=== PATIENT | male | born 1965 | race Two or more races ===

== ENCOUNTER 2019-09-19 14:42 | Inpatient (IN) | payer MEDICAID, OTHER ==
[~2019-09-19] VITALS: Ht 185.4 cm; Wt 110.3 kg
[2019-09-19 15:23] LABS: Basophils # (auto) 0 uL; Basophils % (auto) 0.2 % (0.0-2.0); Eosinophils # (auto) 0.1 uL; Monocytes # (auto) 0.8 uL; Nucleated Red Blood Cells % 0.1 %
[2019-09-19 15:25] LABS: Eosinophils % (auto) 0.5 % (0.0-7.0); Hematocrit 51.6 % (41.0-53.0); Hemoglobin 17.8 g/dL (13.5-17.5); Lymphocytes # (auto) 1.8 uL; Lymphocytes % (auto) 14.2 % (10.0-50.0); Mean Corpuscular Hgb Conc. 34.6 g/dL (32.0-36.0); Mean Corpuscular Volume 83.7 fL (80.0-100.0); Monocytes % (auto) 6.4 % (0.0-12.0); Neutrophils # (auto) 9.8 uL; Neutrophils % (auto) 78.7 % (37.0-80.0); Platelet Count (auto) 267 10^3/uL (140-450); Red Blood Cells 6.16 10^6/uL (4.5-5.90); Red Cell Distribution Width 13.7 % (11.8-14.3); White Blood Cell 12.4 10^3/uL (4.4-10.8)
[2019-09-19] MEDS ORDERED: DILTIAZEM HCL 25 MG/5 ML VIAL IV ONE (15:30)
[2019-09-19 15:37] LABS: INR 1.05 (0.9-1.15); Partial Thromboplastin Time 25.3 sec (23.64-32.05)
[2019-09-19 15:40] LABS: Albumin 3.5 g/dL (3.4-5.0); BUN/Creatinine Ratio 16.5; Calcium 8.7 mg/dL (8.5-10.1); Potassium 4.4 mmol/L (3.5-5.1)
[2019-09-19 15:45] LABS: Bilirubin, Total 0.7 mg/dL (0.2-1.0); Total Protein 7.1 g/dL (6.4-8.2)
[2019-09-19] MEDS ORDERED: DIGOXIN (250MCG/ML) 2 ML AMPULE IV ONE (16:30)
[2019-09-19] MEDS ORDERED: AMIODARONE HCL 150 MG in D5W 5% 100 ML IV ONE (16:30)
[2019-09-19] MEDS ORDERED: AMIODARONE HCL 900 MG in DEXTROSE 500 ML IV SCH (16:34)
[2019-09-19 16:57] LABS: Alcohol, Urine < 3.0 mg/dL (0-5); Amphetamine Screen, Urine POSITIVE (NEGATIVE); Barbiturate Scree,Urine NEGATIVE (NEGATIVE); Benzodiazephine Screen, Urine NEGATIVE (NEGATIVE); Cannabinoid Screen, Urine POSITIVE (NEGATIVE); Cocaine Screen, Urine NEGATIVE (NEGATIVE); Opiate Scree,Urine NEGATIVE (NEGATIVE); Phencyclidine Screen, Urine NEGATIVE (NEGATIVE)
[2019-09-19] MEDS ORDERED: ACETAMINOPHEN 325 MG TAB PO PRN (20:30)
[2019-09-19] MEDS ORDERED: DEXTROSE (50%) 50ML SYRG IV PRN (20:30)
[2019-09-19] MEDS ORDERED: ONDANSETRON HCL 4 MG/2 ML VIAL IV PRN (20:30)
[2019-09-19] MEDS ORDERED: MORPHINE SULF INJ 2 MG/ML SYRINGE 1ML IV PRN (21:00)
[2019-09-19] MEDS ORDERED: NITROGLYCERIN 0.4 MG SL TAB SL PRN (21:00)
[2019-09-19] MEDS ORDERED: AMIODARONE HCL 75 MG in D5W 5% 100 ML IV ONE (21:30)
[2019-09-19] MEDS ORDERED: CARVEDILOL 3.125 MG TAB PO SCH (22:00)
[2019-09-19] MEDS: APIXABAN 5 MG TAB PO SCH (22:05)
[2019-09-19] MEDS: ATORVASTATIN 20 MG TAB PO SCH (22:05)
[2019-09-19] MEDS: FAMOTIDINE 20 MG TAB PO SCH (22:06)
--- NOTE | 2019-09-19 22:38 | NUR ---
Admit to [facility] admitted to [facility] via gurney on teletypesetter monitor. Patient transferred to bed, connected to unit monitoring , and weighed by bed scale. Patient oriented to Arline march RN, unit, room, bed, and unit policies regarding patient care and visiting hours. All questions and concerns addressed, patient verbalized understanding. NOTE: PATIENT IS AWAKE, ALERT AND ORIENTED X4, ANXIOUS. NO SOB, DISTRESS OR PAIN NOTED. ROOM AIR. AMIO DRIP AT 1MG/MIN. ST AT 144 NO OPEN WOUNDS WILL CLOSELY MONITOR.
[2019-09-19 22:50] VITALS: BP 129/98
--- NOTE | 2019-09-19 22:50 | NUR ---
UNABLE TO DO MED REC PATIENT DOES NOT KNOW WHICH MEDS HE TAKES AND SAID THERE IS NO ONE THAT CAN GO GET THEM AT HOME SAID TO CALL HIS PRIMARY PHYSICIAN MATT STONER FOR THIS INFORMATION. WILL ENDORSE TO THE DAY SHIFT RN.
[2019-09-19] MEDS: ACCU-CHEK COMFORT CURVE STRIP VI SCH (23:31)
[2019-09-19] MEDS: AMIODARONE HCL 900 MG in DEXTROSE 500 ML IV SCH (23:31)
[2019-09-19] MEDS: InsuLIN REG 1unit/0.01ml Soln (100units/ml) SC SCH (23:31)
[2019-09-19] MEDS: TEMAZEPAM 15 MG CAP PO PRN (23:32)
[2019-09-19 23:49] VITALS: BP 129/98
[2019-09-20] MEDS ORDERED: LORazepam 2MG/ML-1ML VIAL IV ONE (03:00)
[2019-09-20 04:12] VITALS: BP 130/102
[2019-09-20 05:20] LABS: Basophils # (auto) 0.2 uL; Hemoglobin 17.6 g/dL (13.5-17.5); White Blood Cell 17.4 10^3/uL (4.4-10.8)
[2019-09-20 05:23] LABS: Eosinophils # (auto) 0.1 uL; Eosinophils % (auto) 0.8 % (0.0-7.0); Hematocrit 50.5 % (41.0-53.0); Lymphocytes # (auto) 1.6 uL; Lymphocytes % (auto) 9.2 % (10.0-50.0); Mean Corpuscular Hgb Conc. 34.8 g/dL (32.0-36.0); Mean Corpuscular Volume 83.3 fL (80.0-100.0); Monocytes % (auto) 5.8 % (0.0-12.0); Neutrophils # (auto) 14.5 uL; Neutrophils % (auto) 83.2 % (37.0-80.0); Platelet Count (auto) 238 10^3/uL (140-450); Red Blood Cells 6.07 10^6/uL (4.5-5.90); Red Cell Distribution Width 13.3 % (11.8-14.3)
[2019-09-20 05:38] LABS: BUN/Creatinine Ratio 15.2; Calcium 8.8 mg/dL (8.5-10.1); Potassium 3.8 mmol/L (3.5-5.1)
[2019-09-20] MEDS: InsuLIN REG 1unit/0.01ml Soln (100units/ml) SC SCH ×3 (06:11→18:01)
[2019-09-20] MEDS: ACCU-CHEK COMFORT CURVE STRIP VI SCH ×3 (06:11→18:01)
[2019-09-20] MEDS: FUROSEMIDE 40 MG TAB PO SCH ×2 (06:12→18:06)
--- NOTE | 2019-09-20 07:10 | NUR ---
REPORT GIVEN AND CARE ENDORSED TO PATRICIA MONTES.
--- NOTE | 2019-09-20 07:30 | NUR ---
RECEIVED PATIENT LYING IN BED, A/O TIMES 4, O2 AT 1L BY THE N/C, USES THE URINAL, AMIODARONE AT 16.66ML INFUSING INT0 THE LFA BY THE IV PUMP, LAC 18G FLUSHED AND PATENT, STATES ABD IS TENDER WHEN YOU PUSH ON IT OTHER URIBE HE HAS NO PAINS, STATES THE BED IS UNCOMFORTABLE, AND ITS HARD TO SLEEP IN THE HOSPITAL
[2019-09-20 07:52] VITALS: BP 118/91
--- NOTE | 2019-09-20 08:00 | NUR ---
EXPRESS TO HIM THAT HE WILL GET BREAKFAST SHORTLY
--- NOTE | 2019-09-20 08:41 | NUR ---
SAT UP ON THE SIDE OF THE BED TO EAT HIS BREAKFAST NO HELP NEEDED
--- NOTE | 2019-09-20 09:30 | NUR ---
LYING IN BED WITH EYES CLOSED APPEAR TO BE SLEEPING
[2019-09-20] MEDS ORDERED: ASPirin 81 mg TAB PO SCH (10:00)
[2019-09-20] MEDS ORDERED: LORazepam 2MG/ML-1ML VIAL IV PRN (10:15)
[2019-09-20] MEDS ORDERED: cefTRIAXone 1GM/50ML D5W 50 ML IV ONE (10:15)
--- NOTE | 2019-09-20 10:27 | NUR ---
DR RUVALCABAOD IN TO SEE THE PATIENT
[2019-09-20] MEDS: APIXABAN 5 MG TAB PO SCH ×2 (10:37→20:58)
[2019-09-20] MEDS: FAMOTIDINE 20 MG TAB PO SCH ×2 (10:37→20:58)
[2019-09-20] MEDS: CLOPIDOGREL BISULFATE 75 MG TAB PO SCH (10:38)
[2019-09-20] MEDS: LISINOPRIL 10 MG TAB PO SCH (10:38)
[2019-09-20] MEDS: CARVEDILOL 3.125 MG TAB PO SCH ×2 (10:40→20:58)
[2019-09-20] MEDS: SODIUM CHLORIDE 0.9% 1,000 ML IV SCH ×2 (10:45→21:37)
--- NOTE | 2019-09-20 10:57 | NUR ---
ECHO BEING DONE
--- NOTE | 2019-09-20 11:30 | NUR ---
SALINE LOCK PLACED TO THE RFA 20G 1/1 ATTEMPTS USING STERILE TECHNIQUE, REMOVED THE LFA SALINE LOCK 20G DUE TO PAIN AND REDNESS
[2019-09-20 11:35] VITALS: BP 131/79
--- NOTE | 2019-09-20 11:45 | NUR ---
DR RASHID IN TO SEE THE PATIENT AND STATED HE IS GOING TO ORDER SOME MEDICATIONS TO GET THE HR DOWN AND IF THEY DO NOT WORK HE WILL DO A HERBERT AND [id number] TOMORROW
--- NOTE | 2019-09-20 12:22 | NUR ---
ANTIBIOTICS BEING STARTED INFUSING IN THE THE RFA BY THE IV PUMP,
--- NOTE | 2019-09-20 12:36 | NUR ---
SITTING UP IN BED EATING HIS LUNCH ABLE TO FEED HIMSELF
[2019-09-20] MEDS ORDERED: DIGOXIN (250MCG/ML) 2 ML AMPULE IV ONE (13:00)
[2019-09-20] MEDS ORDERED: DILTIAZEM HCL 25 MG/5 ML VIAL IV ONE (13:00)
--- NOTE | 2019-09-20 13:33 | NUR ---
HR 142 B/P 143/82
--- NOTE | 2019-09-20 13:34 | NUR ---
GAVE CARDIZEM 10MG ORDERED
--- NOTE | 2019-09-20 13:38 | NUR ---
RECHECKED B/P 105/68 HR, 90
--- NOTE | 2019-09-20 13:40 | NUR ---
PATIENT IN AFLUTTER AFTER CARDIZEM GIVEN
--- NOTE | 2019-09-20 13:48 | NUR ---
RECHECKED HR 79 , B/P 105/72, PATIENT STATES SHE CAN TELL HIS HR WENT DOWN, LYING IN BED WITH EYES CLOSED
--- NOTE | 2019-09-20 14:16 | NUR ---
PATIENT CONVERTED BACK INTO STACH
--- NOTE | 2019-09-20 14:33 | NUR ---
FRIENDS IN TO VISIT HR BACK UP TO THE 140'S ,B/P 114/81
--- NOTE | 2019-09-20 14:45 | NUR ---
GAVE DIGOXIN 500MCG FOR HR 0F 142 IV SLOWLY, B/P 114/81
--- NOTE | 2019-09-20 15:00 | NUR ---
HR 141, NO CHANGE AT THIS TIME,
--- NOTE | 2019-09-20 15:07 | NUR ---
PATIENT HAVING STACH WITH PVC'S
[2019-09-20 15:35] VITALS: BP 105/81
--- NOTE | 2019-09-20 15:40 | NUR ---
PATIENT IN AFLUTTER RATE OF 89, CONSENTS SIGNED FOR HERBERT AND CARDIOVERSION TOMORROW
--- NOTE | 2019-09-20 16:03 | NUR ---
LYING IN BED TALKING ON HIS CELL PHONE
--- NOTE | 2019-09-20 16:41 | NUR ---
PATIENT LYING IN BED, HR IS IN THE 90' BUT IT GOES BACK 140 WHEN HE IS MOVING AROUND
--- NOTE | 2019-09-20 17:30 | NUR ---
LYING IN BED WITH EYES CLOSED
[2019-09-20] MEDS: AMIODARONE HCL 900 MG in DEXTROSE 500 ML IV SCH (18:00)
--- NOTE | 2019-09-20 18:30 | NUR ---
PATIENT LYING IN BED, TRYING TO START A NEW IV, NS INFUSING INTO THE RFA AT 75ML/HR BY THE IV PUMP, IV IN THE LAC LEAKING, PATIENT USES THE URINAL OR BSC, HR IN THE LOW 100'S AFLUTTER, O2 BY AT 1L WHICH THE PATIENT TAKES ON AND OFF, NO COMPLAINTS OF PAIN OR SOB, WILL CONTINUE TO MONITOR AND GIVE REPORT TO THE NEXT SHIFT
--- NOTE | 2019-09-20 18:45 | NUR ---
PLACED 22G TO THE LEFT HAND, REMOVED 18G FROM THE LAC WHICH WAS LEAKING
--- NOTE | 2019-09-20 19:55 | NUR ---
SHIFT OPENING NOTE RECEIVED PATIENT AWAKE, ALERT AND ORIENTED X4. NO SOB OR DISTRESS NOTED. N/C 1L ON AND OFF. A FLUTTER 96. AMIO DRIP AT 0.5 AND NS AT 75 INFUSING. PHYSICAL ASSESSMENT COMPLETED, SEE INTERVENTIONS. INSTRUCTED ON POC AND TO CALL FOR ASSIST NEEDED. BED IS IN THE LOWEST POSITION WITH SIDE RAILS UP X2, CALL LIGHT IS WITHIN REACH.
[2019-09-20 20:10] VITALS: BP 100/34
[2019-09-20] MEDS: ATORVASTATIN 20 MG TAB PO SCH (20:58)
[2019-09-20] MEDS: TEMAZEPAM 15 MG CAP PO PRN (20:59)
[2019-09-20 23:48] VITALS: BP 105/65
[2019-09-21] MEDS: ACCU-CHEK COMFORT CURVE STRIP VI SCH ×5 (00:21→23:05)
[2019-09-21] MEDS: InsuLIN REG 1unit/0.01ml Soln (100units/ml) SC SCH ×5 (00:22→23:06)
[2019-09-21 04:00] VITALS: BP 112/85
--- NOTE | 2019-09-21 05:30 | NUR ---
MORNING HYGIENE CARE FULL CHG BATH PERFORMED. GOWN CHANGED. FULL LINEN CHANGED. PATIENT TOLERATED IT WELL.
[2019-09-21] MEDS: FUROSEMIDE 40 MG TAB PO SCH ×2 (05:32→18:00)
[2019-09-21 06:32] LABS: Calcium 8.8 mg/dL (8.5-10.1); Potassium 3.7 mmol/L (3.5-5.1)
[2019-09-21 06:38] LABS: Albumin 3.4 g/dL (3.4-5.0); BUN/Creatinine Ratio 13.4; Bilirubin, Total 1.2 mg/dL (0.2-1.0); Magnesium 2.4 mg/dL (1.6-2.6); Total Protein 7.1 g/dL (6.4-8.2)
--- NOTE | 2019-09-21 07:05 | NUR ---
END OF SHIFT REPORT GIVEN AND CARE ENDORSED TO PATRICIA MONTES. Addendum: 09/21/19 at 1032 by Jie Catalan RN CHANGE TIME TO 0835
[2019-09-21 07:08] LABS: Basophils # (auto) 0.1 uL; Eosinophils # (auto) 0.2 uL; Lymphocytes # (auto) 1.3 uL
[2019-09-21 07:11] LABS: Basophils % (auto) 0.8 % (0.0-2.0); Eosinophils % (auto) 1.3 % (0.0-7.0); Hematocrit 51.8 % (41.0-53.0); Hemoglobin 17.7 g/dL (13.5-17.5); Lymphocytes % (auto) 8.6 % (10.0-50.0); Mean Corpuscular Hemoglobin 29.2 pg (28.0-32.0); Mean Corpuscular Hgb Conc. 34.1 g/dL (32.0-36.0); Mean Corpuscular Volume 85.4 fL (80.0-100.0); Monocytes # (auto) 1.3 uL; Monocytes % (auto) 8.4 % (0.0-12.0); Neutrophils # (auto) 12.4 uL; Neutrophils % (auto) 80.9 % (37.0-80.0); Platelet Count (auto) 210 10^3/uL (140-450); Red Blood Cells 6.07 10^6/uL (4.5-5.90); Red Cell Distribution Width 13.6 % (11.8-14.3); White Blood Cell 15.3 10^3/uL (4.4-10.8)
--- NOTE | 2019-09-21 07:30 | NUR ---
RECEIVED PATIENT SITTING UP IN THE BED A/O TIMES 4, O2 BY N/C AT 2L, AMIODARONE INFUSING INTO THE LT HAND AT 16.66 BY THE IV PUMP, NS INFUSING INTO THE RFA AT 75ML/HR BY THE IV PUMP, PATIENT USES THE URINAL, ASKING FOR SOMETHING TO DRINK EXPRESS TO HIM THAT THE WAS GOING TO HAVE THE HERBERT AND HE WAS NPO, DENIES PAIN
[2019-09-21 08:00] VITALS: BP 126/81
[2019-09-21] MEDS ORDERED: MIDAZOLAM HCL 1MG/1ML-2 ML VIAL IV ONE (08:15)
[2019-09-21] MEDS ORDERED: LIDOCAINE VISCOUS 2% 15ML UD MT ONE (08:15)
[2019-09-21] MEDS ORDERED: fentaNYL CITRATE 100 MCG/2 ML VL IV ONE (08:15)
[2019-09-21] MEDS ORDERED: LIDOCAINE VISCOUS 2% 15ML UD ONE (08:18)
--- NOTE | 2019-09-21 08:20 | NUR ---
NOTIFIED THE PATIENT THAT DR RASHID WAS ON HIS WAY TO DO THE HERBERT/CARDIOVERSION
[2019-09-21] MEDS ORDERED: MIDAZOLAM HCL 1MG/1ML-2 ML VIAL ONE (08:22)
[2019-09-21] MEDS ORDERED: fentaNYL CITRATE 100 MCG/2 ML VL ONE (08:22)
[2019-09-21] MEDS ORDERED: diphenhdrAMINE HCL 50 MG/1 ML VL ONE (08:47)
--- NOTE | 2019-09-21 09:15 | NUR ---
PATIENT TOLERATED THE HERBERT AND CARDIOVERSION AND VERY SLEEPY WAS SHOCKED WITH 200JOULES AND CONVERTED TO SR IN THE 80'S
[2019-09-21] MEDS: cefTRIAXone 1GM/50ML D5W 50 ML IV SCH (09:58)
--- NOTE | 2019-09-21 10:31 | NUR ---
DR RASHID HERE TO SEE THE PATIENT AND GOING TO DO A HERBERT AND CARDIOVERSION Addendum: 09/21/19 at 1043 by Jie Catalan RN CHANGE TIME TO 0835
[2019-09-21] MEDS: SODIUM CHLORIDE 0.9% 1,000 ML IV SCH (10:49)
[2019-09-21] MEDS: AMIODARONE HCL 200 MG TAB PO SCH ×2 (11:05→21:34)
[2019-09-21] MEDS: FAMOTIDINE 20 MG TAB PO SCH ×2 (11:06→21:35)
[2019-09-21] MEDS: CLOPIDOGREL BISULFATE 75 MG TAB PO SCH (11:06)
[2019-09-21] MEDS: APIXABAN 5 MG TAB PO SCH ×2 (11:06→21:35)
[2019-09-21] MEDS: CARVEDILOL 3.125 MG TAB PO SCH ×2 (11:06→21:35)
[2019-09-21] MEDS: LISINOPRIL 10 MG TAB PO SCH (11:07)
--- NOTE | 2019-09-21 11:13 | NUR ---
WOKE PATIENT UP TO SEE IF HE COULD SWALLOW AND STATES HE COULD BUT WAS STILL SLEEPY, EXPLAIN MEDICATIONS TO THE PATIENT REGARDING THE DOSAGE, USAGE AND THE SIDE EFFECTS, VERBALIZED THAT THE UNDERSTOOD AND MEDS GIVEN ORDERED, PATIENT WAS ABLE TO SWALLOW, BUT STATES HE IS GOING BACK TO SLEEP
[2019-09-21 12:00] VITALS: BP 121/89
--- NOTE | 2019-09-21 12:24 | NUR ---
PATIENT A LITTLE MORE AWAKE, UNCLE IN TO VISIT
--- NOTE | 2019-09-21 13:38 | NUR ---
DR RUVALCABAOD IN TO SEE THE PATIENT AND STATED TO TURN THE IV FLUID TO 20ML/HR, WHICH IS INFUSING BY THE IV PUMP
[2019-09-21] MEDS ORDERED: SODIUM CHLORIDE 0.9% 1,000 ML IV SCH (14:30)
--- NOTE | 2019-09-21 14:30 | NUR ---
LYING IN BED EYES CLOSED APPEARS TO BE SLEEPING
--- NOTE | 2019-09-21 15:19 | NUR ---
PATIENT LYING IN BED EYES CLOSED APPEARS TO BE SLEEPING, HR IN SR 77
[2019-09-21 16:00] VITALS: BP 133/93
--- NOTE | 2019-09-21 16:31 | NUR ---
WOKE PATIENT STATES HE IS DOING OKAY JUST STILL SLEEPY
--- NOTE | 2019-09-21 17:30 | NUR ---
LYING IN BED EYES CLOSED NO COMPLAINTS
--- NOTE | 2019-09-21 18:05 | NUR ---
PATIENT HAS HAD NO ISSUES WITH HIS RHYTHM OR B/P SINCE THE HERBERT AND CARDIOVERSION, NO CHEST PAIN OR SOB, ORDER PLACED TO TRANSFER TO TELE PER DR ROSALES AND DR RASHID
--- NOTE | 2019-09-21 18:19 | NUR ---
PATIENT SITTING UP IN BED, EATING HIS DINNER, NO HELP NEEDED, O2 BY R/A, SALINE LOCK TO THE LEFT HAND 22G INTACT AND PATENT, NO COMPLAINTS OF PAIN, NS INFUSING INTO THE RFA AT 20ML/HR BY THE IV PUMP, USES THE URINAL OR BSC, A/O TIMES 4, NO COMPLAINTS OF PAIN OR SOB, WILL CONTINUE TO MONITOR AND GIVE REPORT TO THE NEXT SHIFT
--- NOTE | 2019-09-21 19:40 | NUR ---
HIFT OPENING NOTE RECEIVED PATIENT AWAKE, ALERT AND ORIENTED X4. NO SOB OR DISTRESS NOTED. ON ROOM AIR. STATUS POST CARDIOVERSION AND HERBERT TODAY. SR 82. PHYSICAL ASSESSMENT COMPLETED, SEE INTERVENTIONS. INSTRUCTED ON POC AND TO CALL FOR ASSIST NEEDED. BED IS IN THE LOWEST POSITION WITH SIDE RAILS UP X2, CALL LIGHT IS WITHIN REACH.
[2019-09-21 19:46] VITALS: BP 108/72
[2019-09-21] MEDS: ATORVASTATIN 20 MG TAB PO SCH (21:35)
[2019-09-21] MEDS: TEMAZEPAM 15 MG CAP PO PRN (21:36)
--- NOTE | 2019-09-21 23:00 | NUR ---
[facility] pt transferred to floor [facility] received from [facility] and admitted to [facility] bed 291A via rney on patient monitor and portable 02. All patient medications and personal belongings transferred with patient to receiving floor. Patient care transferred to JYOTI Gross. NOTE: Patient received resting comfortably. No distress noted or pain. Bed in low position; bed wheels locked and call light in reach.
--- NOTE | 2019-09-21 23:13 | NUR ---
REPORT GIVEN TO JUAN MONTES IN TELE ALL QUESTIONS ANSWERED.
--- NOTE | 2019-09-21 23:25 | NUR ---
PATIENT SAFELY TRANSPORTED TO ROOM 291A VIA BED. ALL BELONGINGS TAKEN WITH PATIENT. TOLERATED IT WELL.
[2019-09-21 23:56] VITALS: BP 113/66
[2019-09-22 05:24] VITALS: BP 139/79
[2019-09-22] MEDS: InsuLIN REG 1unit/0.01ml Soln (100units/ml) SC SCH ×2 (06:00→12:09)
[2019-09-22] MEDS: ACCU-CHEK COMFORT CURVE STRIP VI SCH ×2 (06:00→12:10)
[2019-09-22] MEDS: FUROSEMIDE 40 MG TAB PO SCH (06:41)
[2019-09-22 07:27] LABS: Basophils # (auto) 0.1 uL; Basophils % (auto) 0.5 % (0.0-2.0); Eosinophils # (auto) 0.1 uL; Eosinophils % (auto) 0.9 % (0.0-7.0); Hematocrit 48.3 % (41.0-53.0); Hemoglobin 16.8 g/dL (13.5-17.5); Lymphocytes # (auto) 0.6 uL; Lymphocytes % (auto) 3.8 % (10.0-50.0); Mean Corpuscular Hgb Conc. 34.7 g/dL (32.0-36.0); Mean Corpuscular Volume 83.7 fL (80.0-100.0); Monocytes # (auto) 1.3 uL; Monocytes % (auto) 8.1 % (0.0-12.0); Neutrophils # (auto) 13.4 uL; Neutrophils % (auto) 86.7 % (37.0-80.0); Platelet Count (auto) 190 10^3/uL (140-450); Red Blood Cells 5.78 10^6/uL (4.5-5.90); Red Cell Distribution Width 13.1 % (11.8-14.3); White Blood Cell 15.4 10^3/uL (4.4-10.8)
[2019-09-22 07:45] LABS: Albumin 3.3 g/dL (3.4-5.0); Calcium 8.6 mg/dL (8.5-10.1); Potassium 3.6 mmol/L (3.5-5.1)
[2019-09-22 07:51] LABS: BUN/Creatinine Ratio 14.2; Total Protein 6.9 g/dL (6.4-8.2)
[2019-09-22 09:00] VITALS: BP 115/58
--- NOTE | 2019-09-22 09:00 | NUR ---
Opening Shift Note Assumed care of patient, awake and alert. No S/S of distress/SOB or pain. Instructed on POC and to call for assist PRN, will continue to monitor for changes Q1hr and PRN.
[2019-09-22] MEDS: AMIODARONE HCL 200 MG TAB PO SCH (09:56)
[2019-09-22] MEDS: FAMOTIDINE 20 MG TAB PO SCH (09:56)
[2019-09-22] MEDS: APIXABAN 5 MG TAB PO SCH (09:56)
[2019-09-22] MEDS: cefTRIAXone 1GM/50ML D5W 50 ML IV SCH (09:56)
[2019-09-22] MEDS: CARVEDILOL 3.125 MG TAB PO SCH (09:57)
[2019-09-22] MEDS: LISINOPRIL 10 MG TAB PO SCH (09:57)
[2019-09-22] MEDS: CLOPIDOGREL BISULFATE 75 MG TAB PO SCH (09:57)
[2019-09-22 11:45] VITALS: BP 114/75
--- NOTE | 2019-09-22 13:38 | NUR ---
Discharge instructions given as ordered. Encourage to follow up with (Follow up with Dr. Candi Abrams Address : [address], [place] [phone] )as instructed. All questions and concerns addressed. Patient verbalized understanding. Medication reconciliation form completed and copy given to patient. IV removed with catheter intact, pressure dressing applied. Telemetry unit returned to ICU. Patient taken to vehicle via wheelchair with all personal belongings, accompanied by staff and family member. No distress noted at time of departure.
== END 2019-09-22 13:38 | disposition home or self-care (01) | DRG 194 ==
LOC: ER 14:48 → TELE 14:49 → DOU IN ICU 22:38 → TELE-WESTW 09-22 00:09
PROVIDERS: ADMIT Nurse Practitioner; ATTEND Internal Medicine
PROC: B24BZZ4 Ultrasonography of Heart with Aorta, Transesophageal (ICD-10-PCS; principal; 2019-09-21)
PROC: 5A2204Z Restoration of Cardiac Rhythm, Single (ICD-10-PCS; 2019-09-21)
DX: I11.0 Hypertensive heart disease with heart failure (principal); E11.65 Type 2 diabetes mellitus with hyperglycemia; I48.92 Unspecified atrial flutter; E66.01 Morbid (severe) obesity due to excess calories; I08.1 Rheumatic disorders of both mitral and tricuspid valves; I48.91 Unspecified atrial fibrillation; I25.5 Ischemic cardiomyopathy; I50.43 Acute on chronic combined systolic (congestive) and diastolic (congestive) heart failure; N39.0 Urinary tract infection, site not specified; F15.10 Other stimulant abuse, uncomplicated; I25.10 Atherosclerotic heart disease of native coronary artery without angina pectoris; E78.5 Hyperlipidemia, unspecified; F17.210 Nicotine dependence, cigarettes, uncomplicated; Z91.19 Patient's noncompliance with other medical treatment and regimen; Z95.0 Presence of cardiac pacemaker; Z95.5 Presence of coronary angioplasty implant and graft; Z68.32 Body mass index [BMI] 32.0-32.9, adult; Z79.899 Other long term (current) drug therapy
CPT/HCPCS: 36415; 71045; 80048; 80053; 80307; 82962; 83735; 83880; 84443; 84484; 85025; 85610; 85730; 87081; 92960; 93005; 93306; 93312; 96365; 96366; 96375; G0378; J0696; J1815; J2250; J7060